=== PATIENT | male | born 1990 | race Caucasian/White ===

== ENCOUNTER 2017-01-15 04:51 | Emergency (ER) | payer BC, MEDICARE, OTHER ==
[~2017-01-15] VITALS: Ht 185.4 cm; Wt 117.0 kg
[2017-01-15 04:54] VITALS: BP 128/92; PULSE 71; RESP 16; TEMP 98.1; O2SAT 99
[2017-01-15] MEDS ORDERED: SODIUM CHLOR 0.9% 1000 ML INJ 1,000 ML IV SCH (05:11)
[2017-01-15] MEDS ORDERED: FAMOTIDINE 20 MG TAB PO ONE (05:15)
[2017-01-15] MEDS ORDERED: SODIUM CHLORIDE 0.9% FLUSH 10 ML FLUSH IV FLUSH PRN (05:15)
[2017-01-15] MEDS ORDERED: LIDOCAINE VISCOUS 2% SOLN 15 ML UDC PO ONE (05:15)
[2017-01-15] MEDS ORDERED: ALUMINUM/MAGNESIUM/SIMETH 30 ML CUP PO ONE (05:15)
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
[2017-01-15 05:19] VITALS: BP 131/77; PULSE 71; RESP 18; O2SAT 100
--- NOTE | 2017-01-15 05:42 | RADRPT ---
EXAM DATE/TIME: 01/15/2017 05:17 [facility] COMPARISON: No previous studies available for comparison. INDICATIONS : Pt woke with chest pain MEDICAL HISTORY : Autism SURGICAL HISTORY : None. ENCOUNTER: Initial ACUITY: 1 day PAIN SCORE: 6/10 LOCATION: Bilateral chest FINDINGS: A single view of the chest demonstrates the lungs to be symmetrically aerated without evidence of mas s, infiltrate or effusion. The cardiomediastinal contours are unremarkable. Osseous structures are intact. CONCLUSION: No acute cardiopulmonary process. Kushal Christine MD on January 15, 2017 at 5:40 Board Certified Radiologist. This report was verified electronically.
[2017-01-15 06:01] LABS: ALT (GPT) 136 U/L (12-78); ANION GAP 8 MEQ/L (5-15); AST (GOT) 48 U/L (15-37); BICARBONATE 24.8 MEQ/L (21.0-32.0); BLOOD UREA NITROGEN 13 MG/DL (7-18); CHLORIDE 110 MEQ/L (98-107); GLOMERULAR FILTRATION RATE 100 ML/MIN (>89); POTASSIUM 3.6 MEQ/L (3.5-5.1); SODIUM (NA) 143 MEQ/L (136-145)
[2017-01-15 06:03] LABS: ALKALINE PHOSPHATASE 84 U/L (45-117); TOTAL BILIRUBIN ADULT 0.4 MG/DL (0.2-1.0)
[2017-01-15 06:17] LABS: AUTOMATED NEUTROPHIL # 4.3 TH/MM3 (1.8-7.7); BASOPHIL # 0.1 TH/MM3 (0-0.2); BASOPHIL % 1.2 % (0.0-2.0); EOSINOPHIL # 0.2 TH/MM3 (0-0.4); EOSINOPHIL % 2.3 % (0.0-4.0); HEMATOCRIT 45.1 % (39.0-51.0); HEMO FLAGS DIFF FINAL; LYMPH % 33.4 % (9.0-44.0); LYMPHOCYTE # 2.7 TH/MM3 (1.0-4.8); MEAN CELL VOLUME 86.7 FL (80.0-100.0); MEAN CORPUSCULAR HEMOGLOBIN 29.7 PG (27.0-34.0); MEAN CORPUSCULAR HGB CONC 34.2 % (32.0-36.0); MONO % 9.4 % (0.0-8.0); NEUT % 53.7 % (16.0-70.0); PLATELET COUNT 272 TH/MM3 (150-450); WHITE BLOOD COUNT 8.1 TH/MM3 (4.0-11.0)
[2017-01-15 06:30] VITALS: BP 133/81; PULSE 49; RESP 18; O2SAT 100
--- NOTE | 2017-01-15 07:45 | RADRPT ---
EXAM DATE/TIME: 01/15/2017 06:47 [facility] COMPARISON: CT NEEDLE BIOPSY LIVER, August 02, 2013, 8:37. INDICATIONS : Right upper quadrant pain. MEDICAL HISTORY : Autism. Fatty liver. Epigastric pain. SURGICAL HISTORY : Liver biopsy. ENCOUNTER: Initial ACUITY: 2 weeks PAIN SCORE: 5/10 LOCATION: Right upper quadrant MEASUREMENTS: LIVER: 17.7 cm length COMMON DUCT: 4 mm RIGHT KIDNEY: 11.1 x 4.8 x 5.1 cm FINDINGS: LIVER: The liver is echogenic without focal lesion or ductal dilatation. COMMON DUCT: No intraluminal mass or stone visualized. GALLBLADDER: Multiple gallstones are seen. The gallbladder wall is not thickened. PANCREAS: The visualized portions are within normal limits. RIGHT KIDNEY: No evidence of hydronephrosis, stone, or mass. CONCLUSION: 1. Cholelithiasis. 2. Suspected mild hepatic steatosis. Santi Adams MD on January 15, 2017 at 7:41 Board Certified Radiologist. This report was verified electronically.
--- NOTE | 2017-01-15 09:16 | PD ---
Physical Exam Date Seen by Provider: Jan 15, 2017 Time Seen by Provider: 07:00 Narrative 26-year-old male presents with abdominal pain. Patient signed out to me by Dr. Houser at change of shift. We are awaiting the ultrasound results. Also shows hepatic steatosis which the patient has a diagnosis of previously. There is also cholelithiasis noted. No evidence of cholecystitis. The patient be discharged with a prescription for Protonix. He'll also be referred out to surgeon of his choice. Data Data Last Documented VS Vital Signs Date Time Temp Pulse Resp B/P (MAP) Pulse Ox O2 Delivery O2 Flow Rate FiO2 01/15/17 06:30 49 18 133/81 (98) 100 Room Air 01/15/17 04:54 98.1 Orders Orders Complete Blood Count With Diff (01/15/17 05:11) Comprehensive Metabolic Panel (01/15/17 05:11) Lipase (01/15/17 05:11) Us Abdomen Gallbladder (01/15/17 ) Iv Access Insert/Monitor (01/15/17 05:11) Ecg Monitoring (01/15/17 05:11) Oximetry (01/15/17 05:11) Sodium Chlor 0.9% 1000 Ml Inj (Ns 1000 M (01/15/17 05:11) Sodium Chloride 0.9% Flush (Ns Flush) (01/15/17 05:15) Electrocardiogram (01/15/17 05:11) Al-Mag Hy-Si 40-40-4 Mg/Ml Liq (Mag-Al P (01/15/17 05:15) Lidocaine 2% Viscous (Xylocaine 2% Visco (01/15/17 05:15) Famotidine (Pepcid) (01/15/17 05:15) Chest, Single Ap (01/15/17 ) Labs Laboratory Tests Test 01/15/17 05:25 White Blood Count 8.1 TH/MM3 Red Blood Count 5.20 MIL/MM3 Hemoglobin 15.4 GM/DL Hematocrit 45.1 % Mean Corpuscular Volume 86.7 FL Mean Corpuscular Hemoglobin 29.7 PG Mean Corpuscular Hemoglobin Concent 34.2 % Red Cell Distribution Width 13.0 % Platelet Count 272 TH/MM3 Mean Platelet Volume 8.0 FL Neutrophils (%) (Auto) 53.7 % Lymphocytes (%) (Auto) 33.4 % Monocytes (%) (Auto) 9.4 % Eosinophils (%) (Auto) 2.3 % Basophils (%) (Auto) 1.2 % Neutrophils # (Auto) 4.3 TH/MM3 Lymphocytes # (Auto) 2.7 TH/MM3 Monocytes # (Auto) 0.8 TH/MM3 Eosinophils # (Auto) 0.2 TH/MM3 Basophils # (Auto) 0.1 TH/MM3 CBC Comment DIFF FINAL Differential Comment Blood Urea Nitrogen 13 MG/DL Creatinine 0.93 MG/DL Random Glucose 111 MG/DL Total Protein 7.2 GM/DL Albumin 3.5 GM/DL Calcium Level 8.4 MG/DL Alkaline Phosphatase 84 U/L Aspartate Amino Transf (AST/SGOT) 48 U/L Alanine Aminotransferase (ALT/SGPT) 136 U/L Total Bilirubin 0.4 MG/DL Sodium Level 143 MEQ/L Potassium Level 3.6 MEQ/L Chloride Level 110 MEQ/L Carbon Dioxide Level 24.8 MEQ/L Anion Gap 8 MEQ/L Estimat Glomerular Filtration Rate 100 ML/MIN Lipase 132 U/L [facility] Medical Record Reviewed: Yes Supervised Visit with DINA: No Narrative Course 26-year-old presents with abdominal discomfort. The patient is afebrile. Patient is non-surgical abdomen. The patient has evidence of hepatic steatosis. The patient also has cholelithiasis. He'll be started on Protonix. Be referred out to surgeon of his choice. He is instructed return of he develops any worsening symptoms. Diagnosis Primary Impression: suspected gastritis Additional Impressions: Hepatic steatosis Gallstones Additional Instruction: [place] diet. Return if worsening pain, fevers chills, or any other reason that concerned her. Follow up with a surgeon as an outpatient for the gallstones. Med/Other Pt SpecificInfo: Prescription(s) given Scripts Pantoprazole (Protonix) 40 Mg Tab 40 MG PO DAILY for Reflux, #30 TAB 0 Refills Prov: Ronald Marquez MD 01/15/17 Disposition: 01 DISCHARGE HOME Condition: Stable Ronald Marquez MD Jan 15, 2017 09:16
[2017-01-15] MEDS ORDERED: PROT40TA PO (09:17)
--- NOTE | 2017-01-15 12:45 | EKG ---
Date Performed: 01/15/2017 Time Performed: 05:02:39 PTAGE: 26 years EKG: SINUS BRADYCARDIA WITH SINUS ARRHYTHMIA BORDERLINE ECG NO PREVIOUS TRACING DOCTOR: Reed Figueroa Interpretating Date/Time 01/15/2017 12:44:54
== END 2017-01-15 09:48 | disposition home or self-care (01) ==
LOC: NEPE 04:51
DX: K80.20 Calculus of gallbladder without cholecystitis without obstruction (principal)
CPT/HCPCS: 71010; 76705; 80053; 83690; 85025; 93005; 96360; 99285; J7030